=== PATIENT | female | born 1940 | race Caucasian/White ===

== ENCOUNTER 2021-01-23 09:25 | Emergency (ER) | payer MEDICARE ==
[2021-01-23] MEDS ORDERED: Ondansetron PF 4 MG/2 ML Vial ONE (09:38)
== END 2021-01-23 12:57 | disposition home or self-care (01) ==
LOC: CSHERS 09:25
DX: R11.2 Nausea with vomiting, unspecified (principal); K21.9 Gastro-esophageal reflux disease without esophagitis; E78.2 Mixed hyperlipidemia; I10 Essential (primary) hypertension; J45.909 Unspecified asthma, uncomplicated
CPT/HCPCS: 76705; 96374; J2405